=== PATIENT | female | born 1960 | race American Indian/Alaskan Native ===

== ENCOUNTER 2016-05-04 14:06 | Outpatient (CLI) | payer BC, OTHER ==
--- NOTE | 2016-05-04 15:59 | Mammography Report ---
BILATERAL DIGITAL SCREENING MAMMOGRAM WITH CAD: 05/04/16 14:06:00 CLINICAL: Routine screening.Breast cancer survivor status post right partial mastectomy, radiation therapy and chemotherapy. COMPARISON:02/06/14 FINDINGS: The breasts are heterogeneously dense, which may obscure small masses. The right breast is smaller than the left. Stable right upper outer postsurgical scar. A few benign calcifications in the right breast. No mass, architectural distortion or suspicious calcifications. IMPRESSION: No mammographic evidence of malignancy. BI-RADS CATEGORY: 2 -- Benign RECOMMENDATION: Routine mammographic screening in one year. COMMENT: Patient follow-up letters are generated via our [employer] application.
== END 2016-05-04 14:07 | disposition home or self-care (01) ==
LOC: SPVWC 14:06
PROVIDERS: ATTEND Internal Medicine Hematology & Oncology
DX: Z12.31 Encounter for screening mammogram for malignant neoplasm of breast (principal); Z90.11 Acquired absence of right breast and nipple
CPT/HCPCS: 77067; G0202

== ENCOUNTER 2017-05-12 13:48 | Outpatient (CLI) | payer BC, OTHER ==
--- NOTE | 2017-05-12 16:05 | Mammography Report ---
BILATERAL DIGITAL SCREENING MAMMOGRAM WITH CAD: 05/12/17 13:48:00 CLINICAL: Routine screening.Breast cancer survivor status post right partial mastectomy . COMPARISON:05/04/16 FINDINGS: The breasts are heterogeneously dense, which may obscure small masses. Right upper postsurgical scar is more dense and more prominent than on the prior exam and requires additional imaging. A few benign calcifications at the scar. Stable skin thickening of the right breast. No suspicious calcifications. The left breast is negative. IMPRESSION: Changes at the postsurgical scar requiring additional imaging. BI-RADS CATEGORY: 0--Needs Additional Imaging RECOMMENDATION: Recall for spot magnification views of the right postsurgical scar. COMMENT: Patient follow-up letters are generated via our [employer] application.
== END 2017-05-12 13:49 | disposition home or self-care (01) ==
LOC: SPVWC 13:48
PROVIDERS: ATTEND Internal Medicine Hematology & Oncology
DX: Z12.31 Encounter for screening mammogram for malignant neoplasm of breast (principal); Z90.11 Acquired absence of right breast and nipple
CPT/HCPCS: 77067

== ENCOUNTER 2017-06-22 14:04 | Outpatient (CLI) | payer BC, OTHER ==
--- NOTE | 2017-06-23 08:01 | Mammography Report ---
RIGHT DIGITAL DIAGNOSTIC MAMMOGRAM N. RIGHT BREAST ULTRASOUND: 06/22/17 14:04:00 CLINICAL: Recall to evaluate postsurgical scar in the upper-outer breast COMPARISON:May seventy thousand eighteen screening FINDINGS: Spot magnification views of the surgical scar were obtained. Satisfactory effacement of the scar on the exaggerated cc view. The scar is persistently dense on the MLO spot. An ultrasound examination of the upper outer right breast was performed to evaluate the scar. It demonstrates shadowing scar and no suspicious finding. IMPRESSION: Benign postsurgical scar with no suspicious changes. BI-RADS CATEGORY: 2 - - Benign RECOMMENDATION: Routine mammographic screening in one year. ACR BI-RADS MAMMOGRAPHIC CODES: 0 = Needs additional imaging evaluation; 1 = Negative; 2 = Benign; 3 = Probably benign; 4 = Suspicious; 5 = Malignant; 6 = Known biopsy-proven malignancy COMMENT: 1. Dense breast tissue, i.e., adenosis, fibrocystic changes, etc., may obscure an underlying neoplasm. 2. Approximately 10% of cancers are not detected with mammography. 3. A negative mammography report should not delay biopsy if a clinically suspicious mass is present. COMMENT: Patient follow-up letters are generated via our [employer] application.
== END 2017-06-22 14:05 | disposition home or self-care (01) ==
LOC: SPVWC 14:04
PROVIDERS: ATTEND Internal Medicine Hematology & Oncology
DX: R92.8 Other abnormal and inconclusive findings on diagnostic imaging of breast (principal); L90.5 Scar conditions and fibrosis of skin; Z85.3 Personal history of malignant neoplasm of breast

== ENCOUNTER 2018-11-01 09:33 | Outpatient (CLI) | payer BC, OTHER ==
--- NOTE | 2018-11-01 11:56 | Mammography Report ---
BONE DEXA CLINICAL: Postmenopausal and history of breast cancer. TECHNIQUE: 2 site bone DEXA performed on an Hologic scanner. FINDINGS: The average BMD of the lumbar spine L1-L4 is 1.074g/cm squared with a T score of -0.7 and a Z score o f +0.9. The average total BMD of the left hip is 0.907 g/cm squared with a T score of -0.8and a Z score of 0. The left femoral neck BMD is 0.746 g/cm squared with a T score of -1.4 and a Z score of -0.4. IMPRESSION: 1. WHO classification: Normal with average fracture risk based on spine measurements. 2. WHO classification Osteopenia with increased fracture risk based on left femoral neck measurements . RECOMMENDATION: Clinical correlation and routine screening. Definitions: BMD equal bone mineral density T score = BMD related to peak bone mass of young adult ([place] expressed an standard deviation) Z score = age-matched BMD expressed in SD World health organization (WHO) diagnostic criteria Normal T score greater than equal to 1 standard deviation Osteopenia T score between -1 and -2.4 standard deviation Osteoporosis T score -2.5 standard deviation or below. Note: BMD is not the only risk factor for fracture; also consider factors such as the patient's age, risk of falling, previous osteoporotic fracture, family history of osteoporotic fractures, current sm oker and low body weight. Z scores are not calculated if greater than 80 years of age. Signer Name: Irwin Mejia MD Signed: 11/01/2018 11:51 AM Workstation Name: [id number]
--- NOTE | 2018-11-01 13:45 | Mammography Report ---
BILATERAL DIGITAL SCREENING MAMMOGRAM WITH CAD INDICATION: Routine screening mammography. Breast cancer survivor status post right partial mastectom y TECHNIQUE: Digital bilateral 2D mammography was obtained in the craniocaudal and mediolateral obliq ue projections. This examination was interpreted with the benefit of Computer-Aided Detection analysi s. COMPARISON: 05/12/2017 FINDINGS: Breast Density: The breasts are heterogeneously dense, which may obscure small masses. No mass, architectural distortion or suspicious calcifications. The right breast is smaller than the left with stable upper outer benign postsurgical scar. Stable moderate skin thickening of the right b reast. IMPRESSION:No mammographic evidence of malignancy. BI-RADS Category 2: Benign. No mammographic evidence of malignancy. Recommend routine screening ma mmography in one year. A "normal" or negative report should not discourage follow up or biopsy of a clinically significant f inding. A written summary of these findings will be mailed to the patient. The patient will be entered into a mammography reporting system which will generate a reminder letter for the patient's next appointmen t at the appropriate interval. The [employer] recommends yearly mammograms starting at age 40 and continuing as l severo as a woman is in good health. Breast MRI is recommended for women with an approximate 20-25% or greater lifetime risk of breast cancer, including women with a strong family history of breast or ova gorge cancer or who have been treated for Hodgkin's disease. Signer Name: Irwin Mejia MD Signed: 11/01/2018 1:40 PM Workstation Name: [id number]
== END 2018-11-01 09:34 | disposition home or self-care (01) ==
LOC: SPVWC 09:33
PROVIDERS: ATTEND Family Medicine
DX: Z12.31 Encounter for screening mammogram for malignant neoplasm of breast (principal); M85.88 Other specified disorders of bone density and structure, other site; I10 Essential (primary) hypertension; Z78.0 Asymptomatic menopausal state
CPT/HCPCS: 77067; 77080

== ENCOUNTER 2021-01-24 12:12 | Outpatient (CLI) | payer BC, OTHER ==
--- NOTE | 2021-01-24 14:40 | Vascular Lab Report ---
DUPLEX DOPPLER UPPER EXTREMITY VENOUS, RIGHT INDICATION / CLINICAL INFORMATION: LOCALIZED SWELLING OF RIGHT ARM WITH MASS. TECHNIQUE: Duplex doppler imaging was performed through the veins of the right upper extremity using venous compression and other maneuvers. COMPARISON: None available. FINDINGS: RIGHT INTERNAL JUGULAR VEIN: Negative. RIGHT SUBCLAVIAN VEIN: Negative. RIGHT AXILLARY VEIN: Negative. RIGHT BRACHIAL VEIN: Negative. RIGHT FOREARM VEINS: Negative. RIGHT BASILIC VEIN (SUPERFICIAL): Negative. ADDITIONAL FINDINGS: None. IMPRESSION: 1. No sonographic evidence for DVT. Scribed by: Nila Huggins RDMS, RVT Scribed: 01/24/2021 12:37 PM I have reviewed the images, agree with this report, and edited this report as needed. Signer Name: Sonny Madrigal MD Signed: 01/24/2021 2:36 PM Workstation Name: [id number]
== END 2021-01-24 12:13 | disposition home or self-care (01) ==
LOC: VAS 12:12
PROVIDERS: ATTEND Internal Medicine Hematology & Oncology
DX: R22.31 Localized swelling, mass and lump, right upper limb (principal)